=== PATIENT | female | born 1960 | race Caucasian/White ===

== ENCOUNTER → 2020-12-08 | Outpatient (CLI) | payer OTHER ==
[~2020-12-08] MED LIST: CALCIUM 600 +1 EA14 PO; CYANOCOBAL1000 MCG/1 IM; CYMBALTA60 MG PO; DIFLUCAN150 M1 PO; FLEXERIL PO; LISINOPRIL20 MG PO; LYRICA150 MG PO; NAPROSYN500 M1 PO; NORCO 10-325 T1 EACH PO; PRILOSEC OTC20 MG PO; PROAIR HFA8.5 GM INH; TRIAMCINOLONE A15 G1 TOP; XARELTO20 MG PO; ZOFRAN4 MG PO; ZYRTEC10 M5 PO
--- NOTE | 2020-12-08 11:52 | EKG ---
[address] [address] ELECTROCARDIOGRAM REPORT Name: MARIZOL COLLIER [facility] [id number] Admission: 12/08/20 Attend Phys: Lang Franco, Discharge: Date of : 60 Report #: [id number] [facility] Test Date: 2020-12-08 Test Time: 11:38:29 Pat Name: MARIZOL COLLIER Department: Room: Gender: F Bulk Driver: Kaila MYLES : 1960 Requested By: Lang Franco Order Number: [id number] MD: Julio César Can Measurements Intervals [place] Rate: 66 P: 65 [place]: 163 QRS: 58 QRSD: 87 T: 60 QT: 410 QTc: 430 Interpretive Statements Sinus rhythm No previous ECG available for comparison Electronically Signed On 12-08-2020 11:52:33 CDT by Julio César Can [email or web address] <ELECTRONICALLY SIGNED> By: Julio César Can MD, [facility] 12/08/20 1152 1138 [id number] Julio César Can MD, FACC /EPI
[2020-12-08 12:01] LABS: HEMATOCRIT 39.9 % (37.0-47.0); HEMOGLOBIN 13.1 gm/dL (12.0-15.0); MCH 32.3 pg (26.0-34.0); MCHC 32.9 g/dL (28.0-37.0); MCV 98.3 fL (80.0-100.0); RBC 4.06 mil/uL (4.20-5.00); RDW 12.9 % (10.5-14.5); WBC 8.4 thou/uL (4.0-11.0)
[2020-12-08 12:04] LABS: URINE BILIRUBIN NEGATIVE (Negative); URINE BLOOD 1+ (Negative); URINE CLARITY CLEAR; URINE COLOR YELLOW; URINE GLUCOSE-RANDOM* NEGATIVE (Negative); URINE KETONES NEGATIVE (Negative); URINE LEUKOCYTES-REFLEX NEGATIVE (Negative); URINE NITRITE-REFLEX NEGATIVE (Negative); URINE PROTEIN (DIPSTICK) NEGATIVE (Negative); URINE UROBILINOGEN 0.2 E.U./dl (0.2-1.0)
[2020-12-08 12:07] LABS: APTT 27.7 Seconds (24.5-32.8); INR 0.99; PROTIME 10.8 Seconds (10.5-12.1)
[2020-12-08 12:12] LABS: ALBUMIN 3.9 g/dL (3.4-5.0); CALCIUM 8.9 mg/dL (8.5-10.1); CREATININE 1.2 mg/dL (0.6-1.0); POTASSIUM 3.6 mmol/L (3.5-5.1); TOTAL BILIRUBIN 0.3 mg/dL (0.2-1.0); TOTAL PROTEIN 6.6 g/dL (6.4-8.2)
[2020-12-08 14:19] LABS: BACTERIA-REFLEX None Seen /HPF (None Seen); SQUAMOUS 0-3 Few /LPF (0-3); URINE RBC 1-2 Rare /HPF (NONE SEEN); URINE WBC-REFLEX 0-5 Rare /HPF (0-5)
== END ==
LOC: PAC 10:24
PROVIDERS: ATTEND Specialist
DX: M51.26 Other intervertebral disc displacement, lumbar region (principal); I10 Essential (primary) hypertension

== ENCOUNTER 2020-12-15 06:22 | Day surgery (SDC) | payer OTHER ==
[~2020-12-15] VITALS: Ht 170.2 cm; Wt 81.6 kg
[2020-12-15 07:14] VITALS: BP 135/58
--- NOTE | 2020-12-15 12:49 | NUR ---
WALKED IN PATIENT ROOM TO FIND PATIENT'S AMBULATING PATIENT, EDUCATED ON IMPORTANCE OF CALLING PRIOR TO GETTING PATIENT OUT OF BED. NO GAIT BELT OR WALKER WAS BEING USED. THIS NURSE PUT GAIT BELT ON PATIENT TO AMBULATE BACK TO BED, AND PATIENT WAS RESISTANT TO USE. PATIENT BACK IN BED SAFELY AND BED ALARM ON AT THIS TIME.
[2020-12-15] MEDS ORDERED: ACETAMINOPHEN325 M1 PO (14:38)
--- NOTE | 2020-12-15 15:43 | NUR ---
ASSESSMENT: SHARLA REVIEWED CHART AND SPOKE WITH PT AND HER SPOUSE AT THE BEDSIDE. PT IS S/P L3/4 DISCECTOMY. PT LIVES IN A HOUSE WITH HER . PT REPORTS 4 STEPS WITH HANDRAIL WHEN ENTERING THE HOME THROUGH THE FRONT. PT REPORTS ONCE INSIDE SHE DOES NOT HAVE ANY STEPS SHE HAS TO USE. PT REPORTS SHE HAS A CANE AT HOME BUT NO WALKER. PHYSICAL THERAPY WORKED WITH PATIENT AND RECOMMENDING A WALKER FOR HOME. PT IS AGREEABLE AND HAS NO PREFERENCE OF [employer]. SHARLA CONTACTED [place] [employer] PRIOR AUTH LINE AT [phone] AND RECEIVED APPROVAL FOR WALKER. SHARLA SPOKE WITH TAPAN AT [place] [employer] AND GOT APPROVAL #[id number]. CM NOTIFIED LIASON AT [employer] WHO STATES SHE WILL COME DELIVER A WALKER TO PATIENTS ROOM. PT DOES NOT ANTICIPATE ANY FURTHER NEEDS FROM SHARLA.
[2020-12-15 15:45] VITALS: BP 135/58
[2020-12-15 15:50] VITALS: BP 174/84
[2020-12-15] MEDS ORDERED: COLACE100 MG PO (16:09)
[2020-12-15] MEDS ORDERED: MIRALAX119 GM PO (16:09)
--- NOTE | 2020-12-15 16:41 | NUR ---
Pt received discharge orders to home. Pt is A & O x4. Pt VS stable. Pt ambulates independently with walker. Pt denies pain/discomfort at this time. pt is room air. Pt was irritable this shift. Pt had at bedside. Pt wheeled to front enterence in wheelchair by staff and pt left hospital with personal belongings in private vehicle
== END 2020-12-15 17:32 | disposition home or self-care (01) ==
LOC: OR → TBA 06:29 → OR 08:25 → 4S 12:03 → OR 14:08
PROVIDERS: ATTEND Specialist
DX: M51.36 Other intervertebral disc degeneration, lumbar region (principal); I10 Essential (primary) hypertension; K50.90 Crohn's disease, unspecified, without complications; M79.7 Fibromyalgia; F32.9 Major depressive disorder, single episode, unspecified; F41.9 Anxiety disorder, unspecified; M19.90 Unspecified osteoarthritis, unspecified site; M81.0 Age-related osteoporosis without current pathological fracture; K21.9 Gastro-esophageal reflux disease without esophagitis; Z98.890 Other specified postprocedural states; Z79.899 Other long term (current) drug therapy; Z20.822 Contact with and (suspected) exposure to COVID-19; Z86.718 Personal history of other venous thrombosis and embolism; Z79.01 Long term (current) use of anticoagulants; Z90.49 Acquired absence of other specified parts of digestive tract; Z88.8 Allergy status to other drugs, medicaments and biological substances
CPT/HCPCS: 50010; 50101; 50402; 54118; 55340; 56528; 56532; 57103; 58457; 58567; 62110; 62900; 70005